=== PATIENT | male | born 1940 | race Caucasian/White ===

== ENCOUNTER 2022-03-28 10:18 | Day surgery (SDC) | payer OTHER ==
[2022-03-28] VITALS (9 sets, daily range): BP systolic 110–134; BP diastolic 55–84
[~2022-03-28] VITALS: Ht 172.7 cm; Wt 79.1 kg
[2022-03-28] MEDS ORDERED: LORazepam 0.5 MG tablet PO PRN (10:55)
[2022-03-28] MEDS ORDERED: diphenhydrAMINE 25mg capsule PO PRN (10:55)
[2022-03-28] MEDS ORDERED: normal saline 1,000 ML IV SCH (10:55)
[2022-03-28] MEDS ORDERED: OMEP40CA21 PO (11:00)
[2022-03-28] MEDS ORDERED: ACET325T55 PO (11:00)
[2022-03-28] MEDS ORDERED: CHOL400T57 PO (11:00)
[2022-03-28] MEDS ORDERED: ATOR20TA PO (11:00)
[2022-03-28] MEDS ORDERED: OXYB10TA4 PO (11:00)
[2022-03-28] MEDS ORDERED: TIOT18CA3 INH (11:00)
[2022-03-28] MEDS ORDERED: AMLO5TAB PO (11:00)
[2022-03-28] MEDS ORDERED: Areds2 PO (11:00)
[2022-03-28] MEDS ORDERED: ASPI-1053 PO (11:00)
[2022-03-28] MEDS ORDERED: CYAN500T71 PO (11:00)
[2022-03-28] MEDS ORDERED: nitroGLYCERIN-Tridil 50MG/D5W 250 ML IV ONE (12:02)
[2022-03-28] MEDS ORDERED: verapamil 2.5 mg/ml inj IV ONE (12:02)
[2022-03-28] MEDS ORDERED: midazolam 1 mg/ML 2ml injection ONE (12:02)
[2022-03-28] MEDS ORDERED: iohexol 350MG/ML 100ml bottle IV ONE (12:03)
[2022-03-28] MEDS ORDERED: heparin 1,000unit/ml 10ml vial 10 ML ONE (12:03)
[2022-03-28] MEDS ORDERED: LIDOcaine 1%/PF 5ML 10 MG/ML VIAL ONE ×2 (12:03→13:03)
[2022-03-28] MEDS ORDERED: fentaNYL/PF 50MCG/1 ML 2ML syringe ONE (12:03)
[2022-03-28] MEDS ORDERED: HYDROcodone/acetaminophen 10/325mg tab PO PRN (13:50)
[2022-03-28] MEDS ORDERED: HYDROcodone/acetaminophen 5mg/325mg tablet PO PRN (13:50)
[2022-03-28 15:21] LABS: ISTAT Hct MIX 35 %PCV (42-52); ISTAT O2 SATURATION MIX VENOUS 85 % (60-80); ISTAT SOURCE BLNK
[2022-03-28 15:22] LABS: ISTAT Hct MIX 37 %PCV (42-52); ISTAT O2 SATURATION MIX VENOUS 64 % (60-80); ISTAT SOURCE OTHER
--- NOTE | 2022-03-28 15:54 | NUR ---
Pt sitting up in bed eating lunch tray. 250ml oral fluid intake. Denies cp, denies sob. Pt denies pain.
== END 2022-03-28 17:05 | disposition home or self-care (01) ==
LOC: SSTAY O 10:18
PROVIDERS: ATTEND Student in an Organized Health Care Education/Training Program
DX: I35.0 Nonrheumatic aortic (valve) stenosis (principal); I10 Essential (primary) hypertension; Z79.899 Other long term (current) drug therapy; Z98.890 Other specified postprocedural states; Z85.46 Personal history of malignant neoplasm of prostate; Z88.2 Allergy status to sulfonamides; Z88.8 Allergy status to other drugs, medicaments and biological substances
CPT/HCPCS: 82803; 85014; 93005; 93456; 99152; C1769; C1894; J1644; J2250; J3010; J3490; J7030; Q0163; Q9967; A4620; A5120; A6258; A6402

== ENCOUNTER 2022-05-05 09:38 | Outpatient (CLI) | payer OTHER ==
[~2022-05-05 09:38] MED LIST: ACET325T55 PO; AMLO5TAB PO; ASPI-1053 PO; ATOR20TA PO; Areds2 PO; CHOL400T57 PO; CYAN500T71 PO; OMEP40CA21 PO; OXYB10TA4 PO; TIOT18CA3 INH
[2022-05-05 10:12] LABS: BASOPHILS # (AUTO) 0.1 X10'3 (0-0.2); BASOPHILS % (AUTO) 0.8 % (0-1); EOSINOPHILS # (AUTO) 0.1 X10'3 (0-0.9); EOSINOPHILS % (AUTO) 0.8 % (0-6); HEMATOCRIT 41.5 % (42.0-52.0); LYMPHOCYTES # (AUTO) 1.4 X10'3 (1.1-4.8); LYMPHOCYTES % (AUTO) 12.5 % (21-51); MEAN CORPUSCULAR HEMOGLOBIN 32.8 PG (27.0-31.0); MEAN CORPUSCULAR HGB CONC 33.8 g/dL (33.0-36.5); MEAN CORPUSCULAR VOLUME 97.1 FL (78-98); MEAN PLATELET VOLUME 7.6 FL (7.4-10.4); MONOCYTES # (AUTO) 0.6 X10'3 (0-0.9); MONOCYTES % (AUTO) 5.4 % (2-12); NEUTROPHILS # (AUTO) 8.9 X10'3 (1.8-7.7); NEUTROPHILS % (AUTO) 80.5 % (42-75); PLATELET COUNT 404 X10'3 (140-440); RED BLOOD COUNT 4.27 X10'6 (4.70-6.10); RED CELL DISTRIBUTION WIDTH 13.6 % (11.5-14.5); WHITE BLOOD COUNT 11.1 X10'3 (4.5-11.0)
[2022-05-05 10:21] LABS: APTT 30 SECONDS (22-32)
[2022-05-05 10:22] LABS: ALANINE AMINOTRANSFERASE 16 U/L (12-78); ALBUMIN 3.7 G/DL (3.4-5.0); ALBUMIN/GLOBULIN RATIO 0.9 (1.1-1.5); ALKALINE PHOSPHATASE 131 IU/L (46-116); ANION GAP 9 (8-16); ASPARTATE AMINO TRANSFERASE 14 U/L (10-37); BILIRUBIN,TOTAL 0.6 MG/DL (0.1-1.0); BLOOD UREA NITROGEN 21 MG/DL (7-18); BUN/CREATININE RATIO 23.3 (5.4-32.0); CALCIUM 9.8 MG/DL (8.5-10.1); CHLORIDE 104 MMOL/L (99-107); GLUCOSE 85 MG/DL (70-104); POTASSIUM 3.9 MMOL/L (3.5-5.1); SODIUM 141 MMOL/L (135-145); TOTAL CARBON DIOXIDE 28.5 MMOL/L (24-32); TOTAL PROTEIN 7.9 G/DL (6.4-8.2); eGFR 81 ML/MIN
[2022-05-05] MEDS ORDERED: IODIXANOL 320 MG/ML INFUS..BTL 100ML IV ONE ×2 (10:46→10:47)
[2022-05-08 06:47] LABS: ABG BASE EXCESS -0.3 mmol/L (-2.0-2.0); ABG HCO3 22.6 mmol/L (22.0-26.0); ABG OXYGEN SATURATION 94.7 % (94-97); ABG PO2 (T) 73.3 mmHg (75.0-100.0); ALLEN'S TEST POSITIVE; FCOHb 2.8 % (0.0-3.9); FMetHb 0.1 % (0.0-1.5); TOTAL HEMOGLOBIN 13.8 G/dl (14.0-17.9)
== END 2022-05-05 23:59 | disposition home or self-care (01) ==
LOC: RAD 09:38
PROVIDERS: ATTEND Internal Medicine Cardiovascular Disease
DX: Z01.818 Encounter for other preprocedural examination (principal); R94.2 Abnormal results of pulmonary function studies; I70.0 Atherosclerosis of aorta; I71.21 Aneurysm of the ascending aorta, without rupture; I71.43 Infrarenal abdominal aortic aneurysm, without rupture; J43.9 Emphysema, unspecified; J98.11 Atelectasis; J84.10 Pulmonary fibrosis, unspecified; K44.9 Diaphragmatic hernia without obstruction or gangrene; K57.30 Diverticulosis of large intestine without perforation or abscess without bleeding; K76.0 Fatty (change of) liver, not elsewhere classified; K80.20 Calculus of gallbladder without cholecystitis without obstruction; N28.1 Cyst of kidney, acquired; Z90.79 Acquired absence of other genital organ(s); I25.10 Atherosclerotic heart disease of native coronary artery without angina pectoris; K82.8 Other specified diseases of gallbladder; M47.814 Spondylosis without myelopathy or radiculopathy, thoracic region; M41.85 Other forms of scoliosis, thoracolumbar region; M47.817 Spondylosis without myelopathy or radiculopathy, lumbosacral region; I65.29 Occlusion and stenosis of unspecified carotid artery; F17.210 Nicotine dependence, cigarettes, uncomplicated; Z79.899 Other long term (current) drug therapy
CPT/HCPCS: 36415; 36600; 71046; 71275; 74174; 80053; 82803; 85018; 85025; 85610; 85730; 87811; 94010; 94727; 94729; J3490; Q9967

== ENCOUNTER 2025-06-18 07:36 | Outpatient (CLI) | payer MEDICARE, BC ==
[~2025-06-18 07:36] MED LIST changes: -Areds2 PO; +CHOL100017 PO; -CHOL400T57 PO; +OMEP20TA43 PO; -OMEP40CA21 PO
[2025-06-18 08:03] LABS: MEAN PLATELET VOLUME 7.4 FL (7.4-10.4); RED CELL DISTRIBUTION WIDTH 13.4 % (11.5-14.5)
[2025-06-18 08:20] LABS: CREATININE 0.74 MG/DL (0.60-1.10); TOTAL CARBON DIOXIDE 27.2 MMOL/L (24-32); eGFR > 90 ML/MIN
--- NOTE | 2025-06-18 10:33 | RADIOLOGY REPORT ---
Procedure: CT CTA ABDOMEN PELVIS HISTORY: ABDOMINAL AORTIC ANEURYSM, WITHOUT RUPTURE Comparison Study: None Exam Date:06/18/2025 09:03 AM TECHNIQUE: CTA scanner volumetric data acquisition of abdomen and pelvis was obtained following intravenous administration of intravenous contrast without any reported adverse effects. Axial images were reconstructed and additional sagittal and coronal images were reformatted. arterial phase imaging were performed. Postprocessing was also performed on a Separate workstation. 3D images were performed on a dedicated workstation and reviewed for reporting. Radiation Dose : CT Dose: CTDI volume is 10.48 mGy. Dose-length product is 468.96 mGy*cm Contrast: 100 cc Omnipaque 350. FINDINGS: Vascular: Infrarenal abdominal aortic aneurysm measuring maximally up to 7.5 cm in the axial plane with a rim of mural thrombus. Both common iliacs are normal in diameter. Moderate diffuse atherosclerotic plaque. Mesenteric vessel origins are widely patent. Lung Bases: No acute or significant lung base finding. Normal heart size. No pleural or pericardial effusion. Liver: The liver is normal in size. No focal lesions. Normal hepatic vascular enhancement. Gallbladder and Biliary Tree: Cholelithiasis noted without secondary findings of cholecystitis or biliary obstruction. Spleen: Unremarkable Pancreas: The pancreas is normal in appearance without focal lesions or abnormal enhancement. Adrenal Glands: Unremarkable Kidneys: Kidneys demonstrate normal symmetric enhancement without focal lesions, calculi or hydronephrosis. Bilateral renal cortical cysts. Bladder: Unremarkable Bowel: The stomach is grossly normal in appearance. Small bowel and colon are normal in caliber and distribution. Normal appendix is visualized in the right lower quadrant without findings of appendicitis. Ascites: Absent Lymphadenopathy: No mesenteric, retroperitoneal or periportal lymphadenopathy. Abdominal Wall and Mesentery: Unremarkable. Vasculature: The visualized abdominal aorta is normal in size and caliber. Abdominal and pelvic vessels demonstrate normal enhancement. Pelvic Organs: Previous prostatectomy. Multiple metallic clips within the pelvis. Musculoskeletal: No aggressive focal bony lesions, acute fractures or dislocation. IMPRESSION: Large infrarenal abdominal aortic aneurysm measuring 7.5 cm.
== END 2025-06-18 23:59 | disposition home or self-care (01) ==
LOC: RAD 07:36
PROVIDERS: ATTEND Internal Medicine Interventional Cardiology
DX: I71.43 Infrarenal abdominal aortic aneurysm, without rupture (principal); I10 Essential (primary) hypertension; K80.20 Calculus of gallbladder without cholecystitis without obstruction
CPT/HCPCS: 36415; 74174; 80053; 85025; Q9967